=== PATIENT | female | born 1985 | race Caucasian/White ===

== ENCOUNTER 2018-09-05 12:41 | Outpatient (CLI) | payer OTHER ==
[~2018-09-05] VITALS: Ht 157.5 cm; Wt 80.3 kg
[~2018-09-05 12:41] MED LIST: PREN1TAB49 PO
[2018-09-05 15:07] VITALS: Ht 157.5 cm; Wt 80.3 kg
[2018-09-05 15:17] VITALS: BP 115/65; RESP 20
[2018-09-05] MEDS ORDERED: NITROFURANTOIN (SR) 100 MG CAP PO ONE (17:00)
[2018-09-05] MEDS ORDERED: LACTATED RINGER'S 1,000 ML IV ONE (17:00)
--- NOTE | 2018-09-05 17:07 | PREOPHP ---
DATE OF ADMISSION: 09/05/2018 HISTORY OF PRESENT ILLNESS: Ms. Lane Cordero is a 33-year-old 4, para 3, EDC of 10/05/2018, i ntrauterine at 35 weeks and 5-day gestational age, was sent from clinic today for contracti ons. She denies any nausea, vomiting, shortness of breath or visual changes. She reports of occasio nal vaginal spotting. Her care took place with Dr. Ledbetter. PAST MEDICAL HISTORY: None. MEDICATIONS: vitamins. PAST SURGICAL HISTORY: None. OBSTETRIC HISTORY: x3 vaginal deliveries. GYNECOLOGIC HISTORY: 12, regular 3 to 4 days. Denies any sexually transmitted disease. Sexually ac tive with 1 partner. SOCIAL HISTORY: Denies any smoking, drugs or alcohol. FAMILY HISTORY: None. REVIEW OF SYSTEMS: All within normal except history of present illness. PHYSICAL EXAMINATION: HEENT: Within normal. LUNGS: CTA bilateral. CARDIOVASCULAR: S1, S2. Regular rate, rhythm. ABDOMEN: Gravid, mild suprapubic tenderness, negative CVA bilateral. EXTREMITIES: Negative calf tenderness. PELVIC: Vaginal exam: Short and closed. heart tracing category 1. [place]: Regular contractio ns. LABORATORY DATA: Urinalysis is significant for positive 2+ ketones and few bacteria. ASSESSMENT: 1. Intrauterine at 35 weeks and 5 days' gestational age. 2. Dehydration. 3. contractions. 4. Rule out labor. PLAN: IV hydration. Macrobid 100 mg p.o. b.i.d. secondary to symptomatic UTI. Follow up biophysica l profile. Dictated By: EDIS PRIETO/HARVINDER Conf#: [id number] DID#: [id number]
[2018-09-05] MEDS ORDERED: NITROFURANTOIN MACROCRYS 100 MG CAP PO SCH (17:35)
[2018-09-05] MEDS ORDERED: LACTATED RINGER'S 1,000 ML IV SCH (20:00)
[2018-09-05] MEDS ORDERED: TERBUTALINE 1 MG/ML INJ SC PRN (20:30)
[2018-09-05] MEDS ORDERED: SOD CHLORIDE 0.9% 1,000 ML IV SCH (20:30)
[2018-09-05] MEDS ORDERED: CEFTRIAXONE 1 GM/50 ML (PMX) 50 ML IVPB ONE (21:30)
--- NOTE | 2018-09-05 23:00 | PN ---
Triage Information Date/Time 09/05/18 Reason for visit: labor Weeks of Gestation 35w5d /Para Diabetes: none Hypertention: none Objective Vital Signs Date Temp Pulse Resp B/P (MAP) Pulse Ox O2 O2 Flow FiO2 Time Delivery Rate 09/05/18 98.3 20 115/65 Room Air 15:17 (82) Heart Rate: 140's Heart Rate Comments CAT I Contractions: < 5 Minutes Apart Exam VE 1/long/high Results/Medications Result Diagram: 09/05/18 1715 09/05/18 1715 Results 24 hrs Laboratory Tests Test 09/05/18 15:15 09/05/18 17:15 Urine Color STRAW Urine Clarity CLEAR Urine pH 6.0 Urine Specific Apollo 1.004 Urine Ketones 2+ H Urine Nitrite NEGATIVE Urine Bilirubin NEGATIVE Urine Urobilinogen NEGATIVE Urine Leukocyte Esterase 3+ H Urine Microscopic RBC 6 H Urine Microscopic WBC 5 Urine Squamous Epithelial Cells MODERATE Urine Bacteria FEW A Urine Hemoglobin 1+ H Urine Glucose NEGATIVE Urine Total Protein NEGATIVE White Blood Count 11.4 H Red Blood Count 4.48 Hemoglobin 12.6 Hematocrit 39.3 Mean Corpuscular Volume 87.7 Mean Corpuscular Hemoglobin 28.1 L Mean Corpuscular Hemoglobin Concent 32.1 Red Cell Distribution Width 13.2 Platelet Count 203 Mean Platelet Volume 9.8 Immature Granulocytes % 1.800 H Neutrophils % 74.3 Lymphocytes % 17.4 Monocytes % 6.0 Eosinophils % 0.2 Basophils % 0.3 Nucleated Red Blood Cells % 0.0 Immature Granulocytes # 0.200 H Neutrophils # 8.5 H Lymphocytes # 2.0 Monocytes # 0.7 Eosinophils # 0.0 Basophils # 0.0 Nucleated Red Blood Cells # 0.0 Prothrombin Time 12.9 Prothrombin Time Ratio 1.0 INR International Normalized Ratio 0.96 Activated Partial Thromboplast Time 29.5 Sodium Level 137 Potassium Level 3.9 Chloride Level 106 Carbon Dioxide Level 19 L Anion Gap 12 Blood Urea Nitrogen 5 L Creatinine 0.40 L Est Glomerular Filtrat Rate mL/min > 60 Glucose Level 73 Calcium Level 9.2 Total Bilirubin 0.3 Direct Bilirubin 0.00 Indirect Bilirubin 0.3 Aspartate Amino Transf (AST/SGOT) 21 Alanine Aminotransferase (ALT/SGPT) 13 Alkaline Phosphatase 173 H Total Protein 6.9 Albumin 3.4 Globulin 3.50 H Albumin/Globulin Ratio 0.97 Hepatitis B Surface Antigen NEGATIVE Medications Current Medications Lactated Ringer's 1,000 ml @ 125 mls/hr Q8H IV Last administered on 09/05/18at 20:03; Admin Dose 125 MLS/HR; Start 09/05/18 at 20:00 Terbutaline Sulfate (Brethine) 0.25 mg PRN PRN SC TOCOLYTIC THERAPY Last administered on 09/05/18at 20:44; Admin Dose 0.25 MG; Start 09/05/18 at 20:30 Sodium Chloride 1,000 ml @ 125 mls/hr Q8H IV Last administered on 09/05/18at 21:18; Admin Dose 125 MLS/HR; Start 09/05/18 at 20:30 Imaging Results BPP 8/8 TYRESE 10.3 placenta ant Disposition: Discharge Assessment/Plan A IUP 35w5d UTI PTL resolved P IV rocephin 1gm after macrobid Rx cephalexin 500mg q6hr #28 will be f/u in her OB clinic TAYLOR ARDON MD Sep 05, 2018 23:00
--- NOTE | 2018-09-06 01:17 | TRIAGE ---
OB Triage Datetime Report Generated by CPN: 09/06/2018 01:17 Datetime: 09/05/2018 22:37 Stage of : OB Triage Labor Evaluation Frequency: 10-20 Monitor Mode: External Quality: Mild Pattern: Normal: <= 5 Contractions in 10 Minutes Resting Tone Lamar: Relaxed Heart Rate FHR Baseline Rate: 150 Monitor Mode: External US FHR Baseline Changes: No Baseline Change Variability: Moderate 6-25 bpm Accelerations: 15X15 Decelerations: None Category: Category I Datetime: 09/05/2018 22:06 Stage of : OB Triage Monitor Mode: External Quality: Mild Pattern: Normal: <= 5 Contractions in 10 Minutes Resting Tone Lamar: Relaxed Heart Rate FHR Baseline Rate: 150 Monitor Mode: External US Variability: Moderate 6-25 bpm Accelerations: 15X15 Decelerations: None Category: Category I Pain Assessment Pain Scale: 2 Pain Presence: Intermittent Pain Type: Cramping Datetime: 09/05/2018 21:22 Monitor Mode: External Quality: Mild Resting Tone Lamar: Relaxed Heart Rate FHR Baseline Rate: 140 Monitor Mode: External US FHR Baseline Changes: No Baseline Change Variability: Moderate 6-25 bpm Accelerations: 15X15 Decelerations: None Category: Category I Datetime: 09/05/2018 20:25 Stage of : OB Triage Labor Evaluation Frequency: 2-6 Monitor Mode: External Duration (sec)2399: 40-60 Quality: Mild Pattern: Normal: <= 5 Contractions in 10 Minutes Resting Tone Lamar: Relaxed Heart Rate FHR Baseline Rate: 135 Monitor Mode: External US FHR Baseline Changes: No Baseline Change Variability: Moderate 6-25 bpm Accelerations: 15X15 Decelerations: None Category: Category I Datetime: 09/05/2018 20:08 Vaginal Exam Dilatation (cms): 1.0 Effacement (%): 20 Station: -3 Exam By: JANICE MORENO Membrane Status: Intact Vaginal Bleeding: None Cervix, Consistency: Firm Cervix, Position: Midposition Presentation 'A': Cephalic Datetime: 09/05/2018 20:03 Monitor Mode: External US Comments: lots of hiccups and movement audible on monitor, montior having difficulty tracing, periods of loss of contact Datetime: 09/05/2018 19:23 Labor Evaluation Frequency: 2-6 Monitor Mode: External Duration (sec)2399: 20-60 Quality: Mild Pattern: Normal: <= 5 Contractions in 10 Minutes Resting Tone Lamar: Relaxed Heart Rate FHR Baseline Rate: 135 Monitor Mode: External US FHR Baseline Changes: No Baseline Change Variability: Moderate 6-25 bpm Accelerations: 15X15 Decelerations: None Category: Category I Pain Assessment Pain Scale: 5 Pain Presence: Intermittent Pain Type: Cramping Pain Location: Abdomen Datetime: 09/05/2018 18:22 Stage of : OB Triage Monitor Mode: External Quality: Mild Pattern: Normal: <= 5 Contractions in 10 Minutes Resting Tone Lamar: Relaxed Heart Rate FHR Baseline Rate: 135 Monitor Mode: External US FHR Baseline Changes: No Baseline Change Variability: Moderate 6-25 bpm Accelerations: 15X15 Decelerations: None Category: Category I Datetime: 09/05/2018 18:09 Heart Rate FHR Baseline Rate: 140 Monitor Mode: External US FHR Baseline Changes: No Baseline Change Variability: Moderate 6-25 bpm Accelerations: 15X15 Decelerations: None Category: Category I Datetime: 09/05/2018 17:30 Stage of : OB Triage Monitor Mode: External Quality: Mild Pattern: Normal: <= 5 Contractions in 10 Minutes Resting Tone Lamar: Relaxed Heart Rate FHR Baseline Rate: 140 Monitor Mode: External US FHR Baseline Changes: No Baseline Change Variability: Moderate 6-25 bpm Accelerations: 15X15 Decelerations: None Category: Category I Pain Assessment Pain Scale: 5 Pain Presence: Intermittent Pain Type: Cramping Pain Location: Abdomen Datetime: 09/05/2018 16:47 Stage of : OB Triage Datetime: 09/05/2018 16:36 Labor Evaluation Frequency: 3-5 Monitor Mode: External Quality: Mild Pattern: Normal: <= 5 Contractions in 10 Minutes Resting Tone Lamar: Relaxed Heart Rate FHR Baseline Rate: 135 Monitor Mode: External US FHR Baseline Changes: No Baseline Change Variability: Moderate 6-25 bpm Accelerations: 15X15 Decelerations: None Category: Category I Datetime: 09/05/2018 16:06 Labor Evaluation Frequency: irreg Monitor Mode: External Quality: Mild Pattern: Normal: <= 5 Contractions in 10 Minutes Resting Tone Lamar: Relaxed Heart Rate FHR Baseline Rate: 135 Monitor Mode: External US Variability: Moderate 6-25 bpm Accelerations: 15X15 Decelerations: None Category: Category I Datetime: 09/05/2018 15:27 Stage of : OB Triage Datetime: 09/05/2018 15:14 Stage of : OB Triage Assessment Type: Triage Maternal Assessment Level of Consciousness: Fully Conscious DTR's/Clonus: DTRs 2+; No Clonus Headache: Frontal Blurred Vision: No Respiratory Effort: Unlabored; Regular Rhythm; Equal Expansion Breath Sounds, Left: Clear and Equal Breath Sounds, Right: Clear and Equal Nausea/Vomiting: Denies RUQ Epigastric Pain: Denies Facial Edema: None Temperature Route: Axillary Fall Risk Assessment History of Falling: (0) No Secondary Diagnosis: (0) No Ambulatory Aid: (0) Bedrest/Nurse Assist IV Therapy: (0) No Gait: (0) Normal/Bedrest/Immobile Mental Status: (0) Oriented to Own Ability Fall Score: 0 Fall Risk Score Definition: No Risk: No action required Vaginal Exam Dilatation (cms): 1.5 Effacement (%): 4 Station: -3 Exam By: Lucía moody Vaginal Bleeding: Scant Cervix, Consistency: Firm Cervix, Position: Midposition Presentation 'A': Cephalic Datetime: 09/05/2018 15:13 Time of Arrival: 09/05/2018 12:30 EGA: 35.5 Arrived By: Ambulatory Arrived From: Home Chief Complaint: UC's, light beleeding Movement: Present Time Contractions Began: 09/04/2018 12:00 Rupture of Membranes: Denies Vaginal Bleeding: Scant Vaginal Discharge: Denies Recent Sexual Intercouse: Denies Abdominal Trauma: Not Applicable Patient Complaints: Contractions Time Provider Notified: 09/05/2018 15:27 Provider Notified: Dr Kaur Initial Plan: EFM,CBC,TYSCR,UA,BPP,
== END 2018-09-05 22:58 | disposition home or self-care (01) ==
LOC: OBT 12:41 → L-D 12:41 → OBT 22:58
PROVIDERS: ATTEND Obstetrics & Gynecology
DX: O60.03 Preterm labor without delivery, third trimester (principal); Z3A.35 35 weeks gestation of pregnancy
CPT/HCPCS: 36415; 76818; 80053; 81001; 85025; 85610; 85730; 86592; 86850; 86900; 86901; 87340; 96360; 96361; 96367; 96372; J0696; J3105; J7030; J7120; Z7500; G0463

== ENCOUNTER 2018-09-30 10:37 | Inpatient (IN) | payer OTHER ==
[~2018-09-30] VITALS: Ht 154.9 cm; Wt 82.1 kg
[2018-09-30 10:46] VITALS: BP 129/83; PULSE 76; RESP 18
[2018-09-30 10:47] VITALS: Ht 154.9 cm; Wt 82.1 kg
--- NOTE | 2018-09-30 13:36 | HP ---
Date/Time of Note Date/Time of Note DATE: 09/30/18 TIME: 13:35 OB - History Hx of Present Free Text/Dictation @38+wks GA with VB : 4 Para: 3 Care: Good Care Ultrasounds: Normal mid trimester US Obstetrical Complications: None Medical Complications: None Past Family/Social History * Past Medical, Surgical, Family and Obstetric Histories reviewed from ch art. OB Admission Exam Vital Signs Vital Signs Vital Signs Date Temp Pulse Resp B/P (MAP) Pulse Ox O2 O2 Flow FiO2 Time Delivery Rate 09/30/18 98.2 76 18 129/83 10:46 (98) Physical Exam Abdomen: WNL Cervical Dilatation: 1cm Effacement: 50% Station: -1 Membranes: Intact Heart Rate: 140's Accelerations: Accelerations Present Decelerations: No Decelerations Varibility: Moderate Contractions on Admission: 6-10 Minutes Apart OB Assessment/Plan Reason for admission: observation Other Assessment: PMH Deneis PSH Denies Allergy PCN Plan: Expectant Management KARTHIKEYAN KHAN M.D. Sep 30, 2018 13:36
[2018-09-30] MEDS ORDERED: CARBOPROST 250 MCG INJ IM PRN (14:00)
[2018-09-30] MEDS ORDERED: IBUPROFEN 600 MG TAB PO PRN (14:00)
[2018-09-30] MEDS ORDERED: OXYTOCIN 30 UNITS/LR 500 ML IV SCH ×3 (14:00)
[2018-09-30] MEDS ORDERED: LIDOCAINE 1% (MPF) 30 ML INJ INJ PRN (14:00)
[2018-09-30] MEDS ORDERED: METHYLERGONOVINE 0.2 MG INJ IM PRN (14:00)
[2018-09-30] MEDS ORDERED: OXYTOCIN 30 UNITS/LR 500 ML IV PRN (14:00)
[2018-09-30] MEDS ORDERED: BUTORPHANOL 2 MG INJ IV PRN (14:00)
[2018-09-30] MEDS ORDERED: MISOPROSTOL 200 MCG TAB PR PRN (14:00)
[2018-09-30] MEDS: LACTATED RINGER'S 1,000 ML IV SCH ×2 (16:43→20:31)
[2018-09-30] MEDS: VANCOMYCIN 1 GM (PMX) 250 ML IVPB SCH (17:47)
[2018-10-01] MEDS: LACTATED RINGER'S 1,000 ML IV SCH ×3 (02:41→14:06)
--- NOTE | 2018-10-01 03:37 | PREAC ---
Date/Time of Note Date/Time of Note DATE: 10/01/18 TIME: 03:36 Anesthesia Eval and Record Evaluation Time Pre-Procedure Interview DATE: 10/01/18 TIME: 03:36 Age 33 Sex female NPO: 8 hrs Preoperative diagnosis labor pain Planned procedure epidural Past Medical History Past Medical History: None Surgery & Anesthesia Issues No known issue Meds Anticoagulation: No Beta Ramiro within 24 hr: No Reason Beta Ramiro not given: Pt. not on B-Ramiro Reported Medications Vits W-Ca,Fe,Fa(<1MG) () 1 Tab Tablet, 1 TAB PO DAILY 11/22/11 Current Medications Butorphanol Tartrate (Stadol) 2 mg Q2H PRN IV .PAIN; Start 09/30/18 at 14:00 Lidocaine (Xylocaine 1% (Mpf)) 30 ml ONCE PRN INJ .EPISIOTOMY; Start 09/30/18 at 14:00 Oxytocin/Lactated Ringer's 500 ml @ 500 mls/hr ONCE POST IV ; Start 09/30/18 at 14:00 Oxytocin/Lactated Ringer's 500 ml @ 125 mls/hr POST IV ; Start 09/30/18 at 14:00 Ibuprofen (Motrin) 600 mg ONCE PRN PO .PAIN 1-5; Start 09/30/18 at 14:00 Oxytocin/Lactated Ringer's 500 ml @ 0 mls/hr ONCE PRN IV .VAGINAL BLEEDING; Start 09/30/18 at 14:00 Methylergonovine Maleate (Methergine) 0.2 mg ONCE PRN IM .VAGINAL BLEEDING; Start 09/30/18 at 14:00 Carboprost Tromethamine (Hemabate) 250 mcg ONCE PRN IM .VAGINAL BLEEDING; Start 09/30/18 at 14:00 Misoprostol (Cytotec) 1,[address] .VAGINAL BLEEDING; Start 09/30/18 at 14:00 Oxytocin/Lactated Ringer's 500 ml @ 0 mls/hr FOR AUGMENTATION IV Last administered on 09/30/18at 18:34; Admin Dose 1 MLS/HR; Start 09/30/18 at 14:00 Vancomycin HCl 250 ml @ 125 mls/hr Q12H IVPB Last administered on 09/30/18at 17:47; Admin Dose 125 MLS/HR; Start 09/30/18 at 17:00 Lactated Ringer's 1,000 ml @ 125 mls/hr Q8H IV Last administered on 10/01/18at 02:41; Admin Dose 125 MLS/HR; Start 09/30/18 at 16:15 Meds reviewed: Yes Allergies Coded Allergies: amoxicillin (Verified Allergy, Intermediate, RASH, PIRITUS, 08/09/11) Allergies Reviewed: Yes Labs/Studies Labs Reviewed: Reviewed by anesthesiologist Result Diagram: 09/30/18 1555 Laboratory Tests 09/30/18 15:55 Blood Bank Test 09/30/18 15:55 Antibody Screen NEGATIVE Blood Type AB POSITIVE Rh Immune Globulin Candidate NO test: N/A Pre-procedure Exam Last vitals Vital Signs Date Temp Pulse Resp B/P (MAP) Pulse Ox O2 O2 Flow FiO2 Time Delivery Rate 09/30/18 98.2 76 18 129/83 10:46 (98) Airway: Adequate mouth opening, Adequate thyromental dist Mallampati: Mallampati IV Teeth: Normal Lung: Normal Heart: Normal ASA Physical Status ASA physical status: 2 Emergency: None Pre-operative Attestations Prior to commencing anesthesia and surgery, the patient was re-evaluated, there was verification of: *The patient's identity *The results of appropriate recent lab work and preoperative vital signs *The above evaluation not changing prior to induction *Anesthetic plan, risk benefits, alternative and complications discussed with patient/family; questions answered; patient/family understands, accepts and wishes to proceed. HELEN WORKMAN DO Oct 01, 2018 03:37
[2018-10-01] MEDS ORDERED: FENTAnyl 2MCG/ML-ROPIV 0.2% 100 ML ONE (03:39)
[2018-10-01] MEDS ORDERED: NALOXONE (0.4 MG/ML) INJ IV PRN (04:00)
[2018-10-01] MEDS ORDERED: FENTAnyl 2MCG/ML-ROPIV 0.2% 100 ML BAG EPI SCH (04:00)
[2018-10-01] MEDS: VANCOMYCIN 1 GM (PMX) 250 ML IVPB SCH ×2 (05:02→16:37)
[2018-10-01] MEDS: FENTAnyl 2MCG/ML-ROPIV 0.2% 100 ML BAG EPI SCH ×2 (11:58→18:31)
[2018-10-01] MEDS ORDERED: OXYTOCIN 30 UNITS/LR 500 ML IV SCH (21:36)
--- NOTE | 2018-10-01 21:36 | LDN ---
Date/Time of Note Date/Time of Note DATE: 10/01/18 TIME: 21:34 Delivery Summary Weeks of Gestation 38 Placenta Delivered: Spontaneously Meconium: none Episiotomy: No Perineal laceration: 1 Laceration repair: 1st degree perineal laceration with 3-0 chromic Anesthesia type: Epidural Estimated blood loss: 700 ( hemorage improved with uterotonics) Sponge & Needle done & correct: Yes All needle counts correct: Yes Any foreign bodies felt in the: No Delivery Information Sex Infant Sex: female Apgars 1 Minute: 9 5 Minute: 9 Suctioning Nose & mouth suctioned at wilbur: No Delee suction performed: No Umbilical Cord Umbilical cord with: 3 Vessels Cord presentations: no nuchal cord Cord Blood was obtained: Yes EDIS MYLES MD Oct 01, 2018 21:36
[2018-10-01] MEDS ORDERED: METHYLERGONOVINE 0.2 MG INJ IM PRN (22:00)
[2018-10-01] MEDS ORDERED: CARBOPROST 250 MCG INJ IM PRN (22:00)
[2018-10-01] MEDS ORDERED: MISOPROSTOL 200 MCG TAB PR PRN (22:00)
[2018-10-01] MEDS ORDERED: WITCH HAZEL/GLYCERIN PAD PR PRN (22:00)
[2018-10-01] MEDS ORDERED: ACETAMINOPHEN 325 MG TAB PO PRN (22:00)
[2018-10-01] MEDS ORDERED: OXYCODONE/ASPIRIN (4.88/325) TAB PO PRN ×2 (22:00)
[2018-10-01] MEDS ORDERED: LANOLIN HPA 1 PKT TOP PRN (22:00)
[2018-10-01] MEDS ORDERED: NACL 0.9% 3 ML SYG IV SCH (22:00)
[2018-10-01] MEDS ORDERED: OXYTOCIN 30 UNITS/LR 500 ML IV PRN (22:00)
[2018-10-01] MEDS ORDERED: SENNA/DOCUSATE NA (8.6MG/50MG) TAB PO PRN (22:00)
[2018-10-01 23:00] VITALS: BP 128/71; PULSE 86; RESP 18
[2018-10-01] MEDS ORDERED: ACETAMINOPHEN 325 MG TAB PO ONE (23:00)
[2018-10-02] MEDS: IBUPROFEN 600 MG TAB PO SCH ×5 (01:22→23:24)
[2018-10-02 04:03] VITALS: BP 100/55; PULSE 78; RESP 18
--- NOTE | 2018-10-02 07:49 | QN ---
Documentation Comment patient seen and evaluated no headache, n/v, sob, visual changes vs stable afebrile ab soft nt uterine fundus firm at umbilicus extremity no edema no calf tenderness a/ sp vaginal delivery with pp hemorrhage p/ f/u am labs continue to monitor patient closely EDIS MYLES MD Oct 02, 2018 07:49
[2018-10-02 08:00] VITALS: BP 104/66; RESP 20
[2018-10-02] MEDS: SENNA/DOCUSATE NA (8.6MG/50MG) TAB PO SCH ×2 (09:55→21:15)
[2018-10-02 12:00] VITALS: BP 104/59; PULSE 60; RESP 19
[2018-10-02 16:06] VITALS: BP 111/66; PULSE 19; RESP 20
[2018-10-02 19:40] VITALS: BP 90/58; PULSE 81; RESP 19
[2018-10-03 04:15] VITALS: BP 95/63; PULSE 83; RESP 17
[2018-10-03] MEDS: IBUPROFEN 600 MG TAB PO SCH ×2 (05:28→12:00)
--- NOTE | 2018-10-03 06:57 | PD.PPDC ---
EGG AND SPICE MIXER Discharge Instruction Condition [id number] Patient Condition: [id number] Fair Diet [id number] Diet: Fnahb3b Resume Regular Diet Activity/Restrictions [id number] Activity: [id number] Normal Activity May Shower [id number] Restrictions: Awqac1l No Exercising No Lifting No Driving No Sexual Activity Nothing in the Vagina No Crellin No Tampons, douche Follow-up Follow-up with Physician: 1, Week/Weeks Return to clinic for [id number] ORE TRIMMER Instructions: Dtexd7z Fever greater than 101 Chills Worsening abdominal pain Excessive Vaginal Bleeding More than 2 pads per hour Unable to tolerate diet Bjgud2Gu OB Instructions: Mmrgd0h Breast Tenderness Depression Blurried Vision Headache [id number] Surgical Instructions: Gaabi1m Incisional Drainage Incisional Redness EDIS MYLES MD Oct 03, 2018 06:57
--- NOTE | 2018-10-03 06:59 | DS ---
Date/Time of Note Date/Time of Note DATE: 10/03/18 TIME: 06:58 Obstetrical Discharge Record Final Diagnosis Final Diagnosis: Term delivered Vaginal Delivery Obstetrical Delivery: Spontaneous, Laceration, Repaired Complications Other (post bleeding) Condition on Discharge Physical Assessment Last Vitals: stable Voiding: Yes Bowel Movement: Yes Breast: Soft, non-tender, Filling Fundus: Firm Abdomen and Incision: soft nt uterine fundus firm Calf Tenderness: No Patient Condition: EDIS Vital MD Oct 03, 2018 06:59
[2018-10-03 08:00] VITALS: BP 91/54; PULSE 69; RESP 19
[2018-10-03] MEDS ORDERED: INFLUENZA VIRUS VACCINE 0.5 ML (DISPENSING) IM* ONE (10:00)
[2018-10-03] MEDS: SENNA/DOCUSATE NA (8.6MG/50MG) TAB PO SCH (10:08)
--- NOTE | 2018-10-07 11:21 | DELSUM ---
Delivery Summary A-C Datetime Report Generated by N: 10/07/2018 11:20 DELIVERY PERSONNEL Zigzag Tunnel Elastic Operator: Doyle, Sri MATERNAL INFORMATION Delivery Anesthesia: Epidural Medications in Delivery: 0.2mg Methergine, 600mg Cytotec Delivery QBL (ml): 700 Placenta Cultured: No Maternal Complications: None LABOR SUMMARY EDC: 10/05/2018 00:00 No. Babies in Womb: 1 Attempted: No Labor Anesthesia: Epidural LABOR INFORMATION Reason for Induction: Not Applicable Onset of Labor: 09/30/2018 18:34 Complete Dilatation: 10/01/2018 21:08 Oxytocin: Augmentation Group B Beta Strep: Positive Antibiotics # of Doses: x3 Vanco (Annotations: Data stored by [facility] on behalf of user) Antibiotics Time of Last Dose: 09/30/2018 17:50 Steroids Given: None Reason Steroids Not Administered: Not Applicable MEMBRANES Membranes Rupture Method: Spontaneous Rupture of Membranes: 10/01/2018 18:31 Length of Rupture (hr): 2.77 Amniotic Fluid Color: Clear Amniotic Fluid Amount: Moderate Amniotic Fluid Odor: None STAGES OF LABOR Stage 1 hr: 26 Stage 1 min: 34 Stage 2 hr: 0 Stage 2 min: 9 Stage 3 hr: 0 Stage 3 min: 3 Total Time in Labor hr: 26 Total Time in Labor min: 46 VAGINAL DELIVERY Episiotomy: None Laceration Extension: First Degree Laceration Type: Perineal Laceration Repair: Yes Initial Vag Sponge Count: 10 Final Vag Sponge Count: 10 Initial Vag Sharps Count: 1 Final Vag Sharps Count: 2 Sponge Count Correct: Yes; Vaginal Sweep Performed Sharps Count Correct: Yes BABY A INFORMATION Delivery Date/Time: 10/01/2018 21:17 Method of Delivery: Vaginal Born in Route : Yes : N/A Forceps: N/A Vacuum Extraction: N/A Shoulder Dystocia : N/A SHOULDER DYSTOCIA BABY A Delivery Date/Time: 10/01/2018 21:17 PRESENTATION/POSITION BABY A Presentation: Cephalic Cephalic Presentation: Vertex Vertex Position: Left Occipital Anterior Breech Presentation: N/A PLACENTA INFORMATION BABY A Placenta Delivery Time : 10/01/2018 21:20 Placenta Method of Delivery: Spontaneous Placenta Status: Retained SCORES BABY A Heart Rate 1 min: >100 bpm Resp Effort 1 min: Good Cry Reflex Irritability 1 min: Cough/Sneeze/Pulls Away Muscle Tone 1 min: Active Motion Color 1 min: Body [place], Extremit Blue Resuscitation Effort 1 min: Tactile Stimulation SCORE 1 MIN: 9 Heart Rate 5 min: >100 bpm Resp Effort 5 min: Good Cry Reflex Irritability 5 min: Cough/Sneeze/Pulls Away Muscle Tone 5 min: Active Motion Color 5 min: Body [place], Extremit Blue Resuscitation Effort 5 min: Tactile Stimulation SCORE 5 MIN: 9 INFORMATION BABY A Gestational Age at Delivery: 39.3 Gestational Status: Full Term- 39- 40.6 Weeks Infant Outcome : Liveborn Infant Condition : Stable Sex: Female IDENTIFICATION/MEDS BABY A ID Band Number: [id number] ID Band Location: Right Leg; Left Arm Sensor Applied: Yes Sensor Number: [id number] Sensor Location : Cord Clamp Vitamin K Given : Not Given Erythromycin Given: Not Given WEIGHT/LENGTH BABY A Birthweight (gm): 3435 Weight (lb): 7 Infant Weight (oz): 9 Infant Length (in): 20.00 Length (cm): 50.80 CORD INFORMATION BABY A No. Cord Vessels: 3 Nuchal Cord : N/A Cord Blood Taken: Yes Infant Suction: Mouth; Nose
== END 2018-10-03 13:15 | disposition home or self-care (01) | DRG 806 ==
LOC: OBT 10:37 → L-D 10:38 → OBT 13:30 → L-D 13:58 → PP1 10-01 22:51
PROVIDERS: ADMIT Obstetrics & Gynecology; ATTEND Obstetrics & Gynecology
PROC: 4A1HXCZ Monitoring of Products of Conception, Cardiac Rate, External Approach (ICD-10-PCS; 2018-09-30)
PROC: 10E0XZZ Delivery of Products of Conception, External Approach (ICD-10-PCS; principal; 2018-10-01)
PROC: 0HQ9XZZ Repair Perineum Skin, External Approach (ICD-10-PCS; 2018-10-01)
DX: O70.0 First degree perineal laceration during delivery (principal); O72.1 Other immediate postpartum hemorrhage; Z37.0 Single live birth; Z3A.38 38 weeks gestation of pregnancy
CPT/HCPCS: 76815; 76818; 85025; 85610; 85730; 86592; 86850; 86900; 86901; 90686; 99464; G0463; J2210; J2590; J3010; J3370; J7120